=== PATIENT | female | born 1990 | race Caucasian/White ===

== ENCOUNTER 2017-06-23 19:09 | Emergency (ER) | payer SELFPAY ==
[~2017-06-23] VITALS: Ht 149.9 cm; Wt 67.0 kg
[~2017-06-23 19:09] MED LIST: GLIP5 PO; LEVO112T4 PO; METF500T4 PO
[2017-06-23 19:22] LABS: GLUCOSE,POINT OF CARE 409 MG/DL (70-110)
[2017-06-23] MEDS ORDERED: ACETAMINOPHEN/CODEINE 300-30 MG TABLET PO ONE (21:15)
[2017-06-23 21:17] LABS: APPEARANCE,URINE CLEAR (CLEAR); GLUCOSE, URINE (UA) >=1000 mg/dL (NEGATIVE); OCCULT BLOOD,URINE NEGATIVE (NEGATIVE); PH,URINE 5.5 (5.0-8.0); PROTEIN,URINE NEGATIVE (NEGATIVE)
[2017-06-23 21:18] LABS: ADD UA MICROSCOPIC YES; KETONES,URINE 40 mg/dL (NEGATIVE); LEUKOCYTE ESTERASE ,URINE NEGATIVE (NEGATIVE)
[2017-06-23 21:27] LABS: SQUAMOUS EPITHELIAL CELL,UR Few /LPF (None Seen)
[2017-06-23 21:29] LABS: RBC,URINE 0-2 /HPF (0-2)
[2017-06-23 22:25] VITALS: BP 122/87
== END 2017-06-23 22:26 | disposition home or self-care (01) ==
LOC: EMS 19:10
DX: J02.9 Acute pharyngitis, unspecified (principal); H92.01 Otalgia, right ear; E11.9 Type 2 diabetes mellitus without complications; E03.9 Hypothyroidism, unspecified
CPT/HCPCS: 82962; 87086; 99284

== ENCOUNTER 2018-03-27 00:24 | Emergency (ER) | payer SELFPAY ==
[~2018-03-27] VITALS: Ht 149.9 cm; Wt 63.6 kg
[~2018-03-27 00:24] MED LIST changes: -GLIP5 PO; -METF500T4 PO; +METF500T6 PO
[2018-03-27 00:25] VITALS: BP 126/72
[2018-03-27] MEDS ORDERED: INSLAN SQ (00:35)
[2018-03-27 00:39] LABS: GLUCOSE,POINT OF CARE 274 MG/DL (70-110)
[2018-03-27] MEDS ORDERED: PredniSONE 20 MG TABLET PO ONE (01:00)
== END 2018-03-27 01:25 | disposition home or self-care (01) ==
LOC: EDUNIT# 00:24 → EMS 00:25
DX: H92.03 Otalgia, bilateral (principal); R09.81 Nasal congestion; E11.9 Type 2 diabetes mellitus without complications; E03.9 Hypothyroidism, unspecified; F17.210 Nicotine dependence, cigarettes, uncomplicated; Z79.4 Long term (current) use of insulin
CPT/HCPCS: 82962; 99282; J7512

== ENCOUNTER 2019-02-19 23:08 | Observation (INO) | payer SELFPAY ==
[~2019-02-19] VITALS: Ht 149.9 cm; Wt 71.7 kg
[~2019-02-19 23:08] MED LIST changes: +INSLAN SQ; +METF-960 PO; -METF500T6 PO
[2019-02-20 00:20] LABS: GLUCOSE,POINT OF CARE 79 MG/DL (70-110)
[2019-02-20 00:40] VITALS: BP 112/56
== END 2019-02-20 00:40 | disposition home or self-care (01) ==
LOC: 4S 23:08
PROVIDERS: ADMIT Obstetrics & Gynecology; ATTEND Obstetrics & Gynecology
DX: O26.892 Other specified pregnancy related conditions, second trimester (principal); R10.9 Unspecified abdominal pain; O24.419 Gestational diabetes mellitus in pregnancy, unspecified control; Z3A.21 21 weeks gestation of pregnancy
CPT/HCPCS: 81002; 82962; G0378